=== PATIENT | male | born 1975 | race Caucasian/White ===

== ENCOUNTER → 2024-06-20 13:39 | Outpatient (REF) | payer OTHER, SELFPAY | LOC: DHSLP 13:39 | PROVIDERS: ATTENDING PHYSICIAN Internal Medicine; FAMILY PHYSICIAN Family Medicine | DX: G47.30 Sleep apnea, unspecified (principal); R06.83 Snoring | CPT/HCPCS: 95810 ==

== ENCOUNTER → 2024-11-23 13:35 | Outpatient (REF) | payer SELFPAY | LOC: HWRAD 13:35 | PROVIDERS: ATTENDING PHYSICIAN Family Medicine | DX: Z13.6 Encounter for screening for cardiovascular disorders (principal) | CPT/HCPCS: 75571 ==